=== PATIENT | male | born 1970 | race Caucasian/White ===

== ENCOUNTER 2017-08-09 10:17 | Emergency (ER) | payer SELFPAY ==
[2017-08-09] MEDS: GI Cocktail Oral Solution 30 ML PO ONE ×2 (11:20→12:28)
--- NOTE | 2017-08-09 11:30 | EDM.PDOC ---
ED HPI GENERAL MEDICAL PROBLEM - General Chief Complaint: Chest Pain Stated Complaint: chest pressure Time Seen by Provider: 08/09/17 10:40 Source of Information: Reports: Patient, Other (staff) History Limitations: Reports: No Limitations - History of Present Illness INITIAL COMMENTS - FREE TEXT/NARRATIVE: 46 yr male presents to ER with some chest pressure. No cough and no radiating pain. States he doesn't take any medications and has been healthy. 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 He is from [place] and has [place] the mountains and thought this pressure would go away when down from the height, but continues with this chest pressure. States he does have a fit bit and has been monitoring his heart rate. States heart rate for awhile last night of 120. States no pain to legs, no bruising, and no bug bites. Quality: Reports: Pressure Severity: Moderate Improves with: Reports: Rest Context: Reports: Activity Associated Symptoms: Reports: No Other Symptoms Mid-Sternal Chest Pain Score (Numeric/FACES): 6 - Related Data Allergies Allergy/AdvReac Type Severity Reaction Status Date / Time No Known Allergies Allergy Verified 08/09/17 10:36 Home Meds: Home Meds NK [No Known Home Meds] 08/09/17 [History] ED ROS GENERAL - Review of Systems Review Of Systems: See Below Constitutional: Reports: No Symptoms HEENT: Reports: No Symptoms Respiratory: Reports: No Symptoms Cardiovascular: Reports: Chest Pain. Denies: Dyspnea on Exertion, Edema, Palpitations GI/Abdominal: Reports: No Symptoms : Reports: No Symptoms Musculoskeletal: Reports: No Symptoms Skin: Reports: No Symptoms Neurological: Reports: No Symptoms Psychiatric: Reports: No Symptoms Hematologic/Lymphatic: Reports: No Symptoms ED EXAM, GENERAL - Physical Exam Exam: See Below Exam Limited By: No Limitations General Appearance: Alert, WD/WN, No Apparent Distress Eye Exam: Bilateral Eye: PERRL Ears: Normal External Exam Nose: Normal Inspection Throat/Mouth: Normal Inspection, Normal Lips, Normal Voice, No Airway Compromise Head: Atraumatic, Normocephalic Neck: Normal Inspection, Supple, Non-Tender Respiratory/Chest: No Respiratory Distress, Lungs Clear, Normal Breath Sounds Cardiovascular: Normal Peripheral Pulses, Regular Rate, Rhythm, No Edema, No Murmur GI/Abdominal: Normal Bowel Sounds, Soft, Non-Tender Extremities: Normal Inspection, Normal Range of Motion, Non-Tender, No Pedal Edema Neurological: Alert, Oriented, Normal Cognition Psychiatric: Normal Affect, Normal Mood Skin Exam: Warm, Dry, Intact, Normal Color Lymphatic: No Adenopathy EKG INTERPRETATION EKG Date: 08/09/17 Rhythm: NSR Course - Orders/Labs/Meds Orders: Active Orders 24 hr Category Date Time Status EKG Documentation Completion [RC] ASDIRECTED Care 08/09/17 10:32 Active Labs: Laboratory Tests 08/09/17 08/09/17 08/09/17 Range/Units 10:45 10:45 10:45 WBC 7.3 (4.0-11.0) K/uL RBC 4.50 (4.50-6.50) M/uL Hgb 14.4 (13.0-18.0) g/dL Hct 40.7 (40.0-54.0) % MCV 90 (76-96) fL MCH 32.0 (27.0-32.0) pg MCHC 35.4 H (31.0-35.0) g/dL RDW 12.6 (11.0-16.0) % Plt Count 297 (150-400) K/uL MPV 11.1 H (6.0-10.0) fL Neut % (Auto) 58.0 (45.0-70.0) % Lymph % (Auto) 29.7 (20.0-40.0) % [place] % (Auto) 8.3 (3.0-10.0) % Eos % (Auto) 3.5 (1.0-5.0) % Baso % (Auto) 0.5 (0.0-0.5) % Neut # (Auto) 4.24 (2.00-7.50) K/uL Lymph # (Auto) 2.18 (1.50-4.00) K/uL [place] # (Auto) 0.61 (0.20-0.80) K/uL Eos # (Auto) 0.26 (0.04-0.40) K/uL Baso # (Auto) 0.04 (0.02-0.10) K/uL D-Dimer, Quantitative < 100 (0-400) ng/mL Sodium 141 (136-145) mmol/L Potassium 4.4 (3.5-5.1) mmol/L Chloride 104 (98-107) mmol/L Carbon Dioxide 29.2 (21.0-32.0) mmol/L Anion Gap 12.2 (5.0-15.0) mmol/L BUN 12 (8-26) mg/dL Creatinine 0.99 (0.70-1.30) mg/dL Est Cr Clr Drug Dosing 94.22 mL/min Estimated GFR (MDRD) > 60 (>60) MLS/MIN BUN/Creatinine Ratio 12.1 (6-25) Glucose 102 H (74-100) mg/dL Calcium 8.9 (8.5-10.1) mg/dL Total Bilirubin 0.5 (0.0-1.0) mg/dL AST 19 (15-37) U/L ALT 40 (12-78) U/L Alkaline Phosphatase 98 (46-116) U/L Troponin I (0.000-0.060) ng/mL Total Protein 7.2 (6.4-8.2) g/dL Albumin 3.9 (3.4-5.0) g/dL Globulin 3.3 (2.2-4.2) g/dL Albumin/Globulin Ratio 1.2 (0.8-2.0) 08/09/17 Range/Units 10:45 WBC (4.0-11.0) K/uL RBC (4.50-6.50) M/uL Hgb (13.0-18.0) g/dL Hct (40.0-54.0) % MCV (76-96) fL MCH (27.0-32.0) pg MCHC (31.0-35.0) g/dL RDW (11.0-16.0) % Plt Count (150-400) K/uL MPV (6.0-10.0) fL Neut % (Auto) (45.0-70.0) % Lymph % (Auto) (20.0-40.0) % [place] % (Auto) (3.0-10.0) % Eos % (Auto) (1.0-5.0) % Baso % (Auto) (0.0-0.5) % Neut # (Auto) (2.00-7.50) K/uL Lymph # (Auto) (1.50-4.00) K/uL [place] # (Auto) (0.20-0.80) K/uL Eos # (Auto) (0.04-0.40) K/uL Baso # (Auto) (0.02-0.10) K/uL D-Dimer, Quantitative (0-400) ng/mL Sodium (136-145) mmol/L Potassium (3.5-5.1) mmol/L Chloride (98-107) mmol/L Carbon Dioxide (21.0-32.0) mmol/L Anion Gap (5.0-15.0) mmol/L BUN (8-26) mg/dL Creatinine (0.70-1.30) mg/dL Est Cr Clr Drug Dosing mL/min Estimated GFR (MDRD) (>60) MLS/MIN BUN/Creatinine Ratio (6-25) Glucose (74-100) mg/dL Calcium (8.5-10.1) mg/dL Total Bilirubin (0.0-1.0) mg/dL AST (15-37) U/L ALT (12-78) U/L Alkaline Phosphatase (46-116) U/L Troponin I < 0.017 (0.000-0.060) ng/mL Total Protein (6.4-8.2) g/dL Albumin (3.4-5.0) g/dL Globulin (2.2-4.2) g/dL Albumin/Globulin Ratio (0.8-2.0) Meds: Medications Discontinued Medications Generic Name Dose Route Start Last Admin Trade Name Freq PRN Reason Stop Dose Admin Al Hydroxide/Mg Hydroxide 30 ml 08/09/17 11:39 08/09/17 11:20 Gi Cocktail PO 08/09/17 11:40 30 ml ONETIME ONE Administration - Re-Assessments/Exams Free Text/Narrative Re-Assessment/Exam: 08/09/17 18:44 LE Reviewed lab results and EKG results. CBC, CMP, Troponin, D- dimer, EKG all normal. No indication of infectious process, no indication of PE or DVT and no indication of OK, no acute coronary syndrome, or other heart concerns. Pt has been alert and talkative the entire ER visit. Expressed some concern of eating a variety of foods that he doesn't usually eat. Pt was given GI cocktail and states no relief from this. Pt friend is with him now and states nothing unusual for the pt, other than the chest pressure. Recommend rest and take it easy and return if symptoms worsen or change. Recommend f/U with PCP upon return home. Return to nearest ER if symptoms worsen. Recommend use of Prilosec 1 tablet po daily for 2 weeks for comfort of GI distress. 08/09/17 18:50 Departure - Departure Time of Disposition: 12:15 Disposition: Home, Self-Care 01 Condition: Good Clinical Impression: Atypical chest pain - Discharge Information Instructions: Heartburn, Omeprazole capsules (sprinkle caps) - Rx Referrals: PCP,None [Primary Care Provider] - Forms: ED Department Discharge Additional Instructions: Take Prilosec OTC daily 30 min before breakfast. Try for 2 weeks, if no improvement then follow up with primary care provider. - My Orders Last 24 Hours: My Active Orders 08/09/17 10:32 EKG Documentation Completion [RC] ASDIRECTED - Assessment/Plan Last 24 Hours: My Active Orders 08/09/17 10:32 EKG Documentation Completion [RC] ASDIRECTED
== END 2017-08-09 12:15 | disposition home or self-care (01) ==
LOC: LB.ED 10:17
DX: R07.89 Other chest pain (principal)
CPT/HCPCS: 36415; 80053; 84484; 85025; 85379; 93005; 99285; A9270; 99284